=== PATIENT | female | born 1995 | race Caucasian/White ===

== ENCOUNTER 2020-05-03 15:53 | Emergency (ER) | payer OTHER, SELFPAY ==
[2020-05-03 15:55] VITALS: BP 113/71; PULSE 75; RESP 17; TEMP 36.9; O2SAT 100
--- NOTE | 2020-05-03 16:25 | ED_ITS ---
HPI - Skin/Abscess/Foreign Bdy General Chief complaint: Skin/Abscess/Foreign Body Stated complaint: ABCESS Time Seen by Provider: 05/03/20 16:19 History of Present Illness HPI narrative: She has a large painful lump on the right side of her neck. She has had this for several days . Previously seen at an outside hospital and started on antibiotics. No I&D performed. It has continued to become larger and more painful. No systemic symptoms. Related Data Home Medications Medication Instructions Recorded Confirmed sulfamethoxazole-trimethoprim 05/03/20 Allergies Allergy/AdvReac Type Severity Reaction Status Date / Time No Known Allergies Allergy Mild Verified 05/03/20 15:58 Review of Systems Constitutional: Constitutional: Denies chills and Denies fever(s) ENT: Denies dizziness Respiratory: Respiratory: Denies dyspnea Neurologic: Denies numbness and Denies weakness PMFSH Social History Social History Gender identity (if verbalized by the patient): Female Exam Const: General: healthy appearing, no acute distress and alert Orientation/consciousness: patient oriented x3 HENMT: Head: normal to inspection Neck: Neck: lymphadenopathy Other: 3x4 cm erythematous and indurated mass with central fluctuance on the right side of the neck Resp: Effort & Inspection: normal respiratory effort Auscultation: clear to auscultation bilaterally Cardio: Rate: regular rate Rhythm: regular rhythm Neuro: General: patient oriented x3 and moves all extremities Speech: normal speech Extrem: General: normal to inspection Course Vital Signs Vital signs: Vital Signs Temperature 36.9 C 05/03/20 15:55 Pulse Rate 75 05/03/20 15:55 Respiratory Rate 17 05/03/20 15:55 Blood Pressure 113/71 05/03/20 15:55 Pulse Oximetry 100 05/03/20 15:55 Temperature 36.9 C 05/03/20 15:55 Pulse Rate 72 05/03/20 17:13 Respiratory Rate 16 05/03/20 17:13 Blood Pressure 118/76 05/03/20 17:13 Pulse Oximetry 100 05/03/20 17:13 Procedures Abscess I/D neck: Side (if applicable): right Local Anesthetic: lidocaine 1% and with epi Amount of anesthesia used (mL): 6 Technique: incised with #11 blade Amount of fluid expressed (mL): 5 Irrigation: Yes Packing used?: iodoform I&D Results: Pus Discharge Plan Discharge Clinical Impression: Cellulitis and abscess of neck Patient Disposition: Home, Self-Care Condition: Stable Instructions: Antibiotic Form, Abscess (ED) Prescriptions: New sulfamethoxazole-trimethoprim [Bactrim DS] 800-160 mg tablet 1 tablet PO Q12H Qty: 10 RF: 0 Continued sulfamethoxazole-trimethoprim 800-160 mg tablet RF: 0 Follow-up/Referrals: PHYSICIAN,REEL BLADE BENDER FURNACE TENDER [Primary Care Provider] - Discharge Date/Time: 05/03/20 16:51
--- NOTE | 2020-05-03 16:29 | PC.NURSE ---
ERP AT BEDSIDE TO DRAIN WOUND.
[2020-05-03 17:13] VITALS: BP 118/76; PULSE 72; RESP 16; O2SAT 100
== END 2020-05-03 16:51 | disposition home or self-care (01) ==
PROVIDERS: Emergency Provider Emergency Medicine
DX: L03.221 Cellulitis of neck (principal); L02.11 Cutaneous abscess of neck
CPT/HCPCS: 10061; 99283

== ENCOUNTER 2021-09-29 20:37 | Emergency (ER) | payer OTHER, SELFPAY ==
--- NOTE | ~2021-09-29 | XR_ITS ---
EXAMINATION: XR knee RT min 4V DATE: 09/29/2021 22:13 INDICATION: Right knee pain after fall TECHNIQUE: Four views of the right knee were obtained. COMPARISON: None. FINDINGS: Alignment is normal. No fracture or osteochondral lesion. There are changes of prior tendon repair. No joint effusion/synovitis. Soft tissues are unremarkable. IMPRESSION: 1. No acute osseous abnormality. Reviewed, dictated and finalized at location F. NEYMAN PLUMBER
[2021-09-29 20:49] VITALS: BP 124/57; PULSE 78; RESP 12; TEMP 37.1; O2SAT 100
[2021-09-29] MEDS: KETOROLAC (*BKC) 60 MG/2 ML VIAL IM (21:50)
[2021-09-29] MEDS: ONDANSETRON HCL ODT 4 MG TABLET PO (21:50)
--- NOTE | 2021-09-29 21:56 | ED.LOWEXIN ---
HPI - Extremity Injury (Lower) General Chief Complaint: Extremity Injury, Lower Stated Complaint: knee pain Time Seen by Provider: 09/29/21 21:03 Source: patient and RN notes reviewed Mode of arrival: ambulatory Limitations: no limitations History of Present Illness HPI Narrative: This is a 26 year old female who presents for evaluation of right knee pain. She fell yesterday and she reports twisting her right knee and falling onto it. She reports her knee pain has worsened. She has taken 1200 mg ibuprofen for her pain without relief. She denies any other injuries. Related Data Home Medications Medication Instructions Recorded Confirmed sulfamethoxazole-trimethoprim 05/03/20 Allergies Allergy/AdvReac Type Severity Reaction Status Date / Time No Known Allergies Allergy Mild Verified 09/29/21 20:53 Review of Systems Review of Systems: All systems reviewed & are unremarkable except as noted in HPI and below PMFSH Past Medical History Medical History (Updated 09/30/21 @ 00:00 by Vonnie Schmidt) Patient denies medical problems Surgical History Surgical History (Updated 09/29/21 @ 21:58 by Hailey Peralta MD) History of repair of anterior cruciate ligament of right knee Social History Social History (Updated 09/29/21 @ 21:59 by Hailey Peralta MD) Smoking packs per day: 0.5 Smoking cigarettes per day: 10.0 Smoking status: Current every day smoker Gender identity (if verbalized by the patient): Female Exam Const: General: no acute distress and alert Orientation/consciousness: patient oriented x3 Eyes: EOM: EOMs intact bilaterally Skin: General skin exam: normal color Rashes: no rashes Neuro: General: patient oriented x3, moves all extremities and CN's II-XI intact bilaterally Extrem: Other: abrasion to right anterior knee, no significant bruising, swelling or deformity. She has FROM right knee Psych: Mental Status: mental status grossly normal Affect: normal affect Course Reevaluation(s) Reevaluation #1: I Discussed with patient xray was unremarkable. She will follow up with her orthopedic surgeon. Date: 09/29/21 Time: 22:55 Vital Signs Vital signs: Vital Signs Temperature 98.8 F 09/29/21 20:49 Pulse Rate 78 09/29/21 20:49 Respiratory Rate 12 09/29/21 20:49 Blood Pressure 124/57 L 09/29/21 20:49 Pulse Oximetry 100 09/29/21 20:49 Temperature 98.8 F 09/29/21 20:49 Pulse Rate 85 09/29/21 23:14 Respiratory Rate 16 09/29/21 23:14 Blood Pressure 120/72 09/29/21 23:14 Pulse Oximetry 100 09/29/21 23:14 MDM - Extremity Injury (Lower) Imaging Data Radiologist's impression: ITS Impressions Knee X-Ray 09/29/21 22:26 IMPRESSION: 1. No acute osseous abnormality. Discharge Plan Discharge Clinical Impression: Right knee sprain Patient Disposition: Home, Self-Care Condition: Stable Instructions: Antibiotic Form, Knee Pain (ED) Additional Instructions: You can wear a knee brace to help with your pain. Do not take more than one of your 600 mg tablets of ibuprofen every 6 hours. You can take tylenol with it. Apply ice to help with pain. follow up with your primary care provider or your orthopedic surgeon. Prescriptions: No Action sulfamethoxazole-trimethoprim 800-160 mg tablet RF: 0 sulfamethoxazole-trimethoprim [Bactrim DS] 800-160 mg tablet 1 tablet PO Q12H Qty: 10 RF: 0 Follow-up/Referrals: Koby,Karen Ferreira APRN [Primary Care Provider] -
[2021-09-29 23:14] VITALS: BP 120/72; PULSE 85; RESP 16; O2SAT 100
== END 2021-09-29 23:14 | disposition home or self-care (01) ==
PROVIDERS: Emergency Provider General Practice; PCP Nurse Practitioner Family
DX: S83.91XA Sprain of unspecified site of right knee, initial encounter (principal); F17.210 Nicotine dependence, cigarettes, uncomplicated; X50.9XXA Other and unspecified overexertion or strenuous movements or postures, initial encounter; W18.39XA Other fall on same level, initial encounter
CPT/HCPCS: 73564; 96372; 99283; A9270; J1885

== ENCOUNTER 2021-10-26 11:09 | Emergency (ER) | payer OTHER, SELFPAY ==
--- NOTE | ~2021-10-26 | CT_ITS ---
EXAMINATION: CT abdomen pelvis w con DATE: 10/26/2021 12:31 INDICATION: Periumbilical abdominal pain. Nausea. TECHNIQUE: Computed tomography (CT) of the abdomen and pelvis was performed with 100 mL Omnipaque 350 intravenous contrast. Automated exposure control and iterative reconstruction technique were employe d. The dose-length product was 362.23 mGy-cm. COMPARISON: CT abdomen and pelvis 01/30/2016 FINDINGS: The visualized portions of the lung bases are clear without pneumonia or pleural effusion. The heart size is normal. No pericardial effusion. There is a small sliding hiatal hernia. There are surgical changes of the stomach, likely a gastric sleeve procedure. The liver, gallbladder, spleen, p ancreas, adrenal glands, and kidneys are normal. There are no dilated loops of bowel. The appendix is normal. There are no pathologically enlarged lymph nodes. There is no free intraperitoneal fluid. 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 IMPRESSION: 1. Small sliding hiatal hernia. Gastric sleeve procedure. Reviewed, dictated and finalized at location A. WALL FINISHER
[2021-10-26 11:19] VITALS: BP 129/83; PULSE 71; RESP 18; TEMP 37.1; O2SAT 100
[2021-10-26 11:40] LABS: Basophils Absolute Auto 0.1 K/mm3 (0.0-0.1); Basophils Percent Auto 0.8 % (0.2-1.2); Eosinophils Absolute Auto 0.2 K/mm3 (0-0.3); Eosinophils Percent Auto 3.7 % (0-4.4); Hematocrit 38.6 % (37.0-47.0); Hemoglobin 12.8 g/dL (12.0-15.0); Immature Granulocyte Absolute 0.02 K/mm3 (0.00-0.031); Immature Granulocyte Percent A 0.3 % (0-0.5); Lymphocytes Absolute Auto 2.44 K/mm3 (0.9-3.2); Lymphocytes Percent Auto 38.8 % (18.3-44.2); Mean Corpuscular HGB Conc 33.2 g/dl (32-36); Mean Corpuscular Volume 90.6 fl (80-100); Mean Platelet Volume 9.8 fl (7.4-10.4); Monocytes Absolute Auto 0.4 K/mm3 (0.1-0.6); Neutrophils Absolute Auto 3.2 K/mm3 (1.3-6.7); Neutrophils Percent Auto 50.4 % (45.5-73.1); Platelet Count Result 306 k/mm3 (150-375); Red Blood Count 4.26 M/mm3 (4.2-5.4); Red Cell Distribution Width 12.4 % (11.5-14.5); White Blood Count 6.3 K/mm3 (4.5-10.0)
[2021-10-26 11:47] LABS: Add Urine Microscopic? YES; Appearance Urine Clear (Clear); Bilirubin Urine 1+ (Negative); Blood Urine Negative (Negative); Color Urine Yellow (Yellow); Glucose Urine UA Negative (Negative); Ketones Urine Trace mg/dL (Negative); Leukocyte Esterase Ur Negative LEU/UL (Negative); Mucus Urine Rare /lpf; Nitrate Urine Negative (Negative); Protein Urine Negative (Negative); Specific Grav Ur 1.027 (1.001-1.035); Squamous Epithelial Cell Urine Few /hpf (Few); WBC Urine 0-3 /hpf
[2021-10-26] MEDS: SODIUM CHLORIDE 0.9% IV 1,000 ML 999 ML IV CONT (11:49)
[2021-10-26 11:58] LABS: Alanine Aminotransferase 43 U/L (4-35); Albumin Level 4.2 g/dL (3.5-5.1); Alkaline Phosphatase 68 U/L (38-126); Anion Gap 6 mmol/L (8-16); Aspartate Amino Transferase 43 U/L (14-36); Bilirubin,Total 0.3 mg/dL (0.2-1.3); Blood Urea Nitrogen 12 mg/dL (7-17); Calcium 9.1 mg/dL (8.4-10.2); Carbon Dioxide 27 mmol/L (22-30); Chloride 107 mmol/L (98-107); Estimated CRCL calculation 103 ml/min; Estimated Glomerular Filt Rate > 60; Glucose 83 mg/dL (65-110); Lipase 137 U/L (23-300); Sodium 140 mmol/L (137-145)
--- NOTE | 2021-10-26 12:08 | ED.ABDPAIN ---
HPI - Abdominal Pain General Chief Complaint: Abdominal Pain Stated Complaint: abd pain Time Seen by Provider: 10/26/21 11:42 Source: patient Mode of arrival: ambulatory Limitations: no limitations History of Present Illness HPI narrative: Patient is 26 years old white female presents with right abdominal pain mainly around the bellybutton started 2 days ago constant, sharp, cramps, associated with nausea. Patient denies any fever, chills, vomiting, diarrhea, constipation, vaginal bleeding or discharge. 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 EYES: Denies visual changes, redness, or discharge. ENT: Denies rhinorrhea, congestion, sore throat, or otalgia. CARDIOVASCULAR: Denies chest pain, palpitations, or edema. RESPIRATORY: Denies cough or dyspnea. GASTROINTESTINAL: Denies abdominal pain, nausea, vomiting, or diarrhea. GENITOURINARY: Denies dysuria or hematuria. SKIN: Denies rash or itching. MUSCULOSKELETAL: Denies back pain, joint pain, or myalgia. NEUROLOGIC: Denies headache, numbness, or weakness. PSYCHIATRIC: Denies anxiety or depression. [facility] Past Medical History Medical History Patient denies medical problems Surgical History Surgical History History of repair of anterior cruciate ligament of right knee Social History Social History Smoking packs per day: 0.5 Smoking cigarettes per day: 10.0 Smoking status: Current every day smoker Gender identity (if verbalized by the patient): Female Exam Narrative: General appearance: Well-developed, well-nourished Skin: Normal color Head: Normocephalic, nontraumatic Eyes: Clear conjunctiva ENT: Oropharynx normal, ears normal, nose normal Neck: Supple, nontender Chest and respiratory: Airway patent, no respiratory distress, no accessory muscle use Heart: Regular rate/rhythm Abdomen: Soft, moderate tenderness right lower quadrant, positive guarding, no rebound, no organomegaly, quiet bowel sounds Vascular: Normal peripheral pulses, normal capillary refill. Musculoskeletal: Normal range of motion, nontender back Neurologic: Alert and oriented ?3, GYRO COMPASS TESTER is normal as tested, no gross motor deficit Course Course Emergency Course: Stable Vital Signs Vital signs: Vital Signs Temperature 37.1 C 10/26/21 11:19 Pulse Rate 71 10/26/21 11:19 Respiratory Rate 18 10/26/21 11:19 Blood Pressure 129/83 10/26/21 11:19 Pulse Oximetry 100 10/26/21 11:19 Temperature 37.1 C 10/26/21 11:19 Pulse Rate 71 10/26/21 11:19 Respiratory Rate 18 10/26/21 11:19 Blood Pressure 129/83 10/26/21 11:19 Pulse Oximetry 100 10/26/21 11:19 MDM - Abdominal Pain MDM Narrative Medical decision making narrative: Work-up showed no significant findings to explain patient condition. Hiatal hernia is a possibility as a complication for gastric sleeve. My plan to discharge patient on Bentyl and to follow-up with field sales associate for further evaluation Differential Diagnosis Differential diagnosis: Likely abdominal pain, acute appendicitis, calculus of kidney, constipation, diverticulitis and pancreatitis Lab Data Result diagrams: 10/26/21 11:35 10/26/21 11:35 Labs: Lab Res
[2021-10-26] MEDS: ONDANSETRON INJ 4 MG/2 ML VIAL IV PUSH (12:38)
[2021-10-26] MEDS: HYDROmorphone HCL INJ (*CRX) 1 MG/ML SYR 0.5 MG IV PUSH (12:39)
[2021-10-26 14:06] VITALS: BP 129/83; PULSE 78; RESP 18; O2SAT 99
== END 2021-10-26 14:07 | disposition home or self-care (01) ==
PROVIDERS: Emergency Provider Emergency Medicine; PCP Nurse Practitioner Family
DX: R10.33 Periumbilical pain (principal); F17.210 Nicotine dependence, cigarettes, uncomplicated; Z98.84 Bariatric surgery status; K44.9 Diaphragmatic hernia without obstruction or gangrene
CPT/HCPCS: 36415; 74177; 80053; 81001; 81025; 83690; 85025; 96361; 96374; 96375; 99284; J1170; J2405; J7030; Q9967

== ENCOUNTER 2021-11-05 14:44 | Emergency (ER) | payer OTHER, SELFPAY ==
[2021-11-05 14:46] VITALS: BP 127/77; PULSE 85; RESP 16; TEMP 36.3; O2SAT 96
[2021-11-05 14:52] VITALS: BP 125/68; PULSE 73; RESP 20; TEMP 36.7; O2SAT 100
--- NOTE | 2021-11-05 15:02 | ED.ABDPAIN ---
HPI - Abdominal Pain General Chief Complaint: Abdominal Pain Stated Complaint: abd pain Time Seen by Provider: 11/05/21 14:54 Source: patient Mode of arrival: ambulatory Limitations: no limitations History of Present Illness HPI narrative: 26-year-old female presents with mid abdominal pain started 2 days ago. Associated diarrhea. Patient denies urinary symptoms, fevers, or body aches. Patient has a history of a gastric sleeve procedure approximately 6 years ago. Patient states she was seen here 10 days ago and had a CT scan which was negative. Patient has not followed up with her PCP. Patient states she felt better until yesterday when the diarrhea midabdominal pain started no other complaints. MD elicited complaint: abdominal pain Onset (ago): day(s) (1) Associated symptoms: nausea and diarrhea Related Data Home Medications Medication Instructions Recorded Confirmed fluoxetine mg 11/05/21 fluoxetine mg 11/05/21 oxcarbazepine 11/05/21 Allergies Allergy/AdvReac Type Severity Reaction Status Date / Time No Known Allergies Allergy Mild Verified 10/26/21 11:23 Review of Systems Review of Systems: All systems reviewed & are unremarkable except as noted in HPI and below Constitutional: Constitutional: Reports no additional constitutional complaints Eyes: Eyes: Reports no additional eye complaints ENT: Reports system reviewed and no additional complaints, except as documented Cardiovascular: Cardiovascular: Reports no additional cardiovascular complaints Respiratory: Respiratory: Reports no additional respiratory complaints Gastrointestinal: Gastrointestinal: Reports abdominal pain, Reports diarrhea and Reports nausea Genitourinary: Genitourinary: Reports no additional female genitourinary complaints Musculoskeletal: Musculoskeletal: Reports no additional musculoskeletal complaints Integumentary/Breasts: Skin/Breast: Reports system reviewed and no additional complaints, except as docu Neurologic: Reports system reviewed and no additional complaints, except as documented Psychiatric: Psychiatric: Reports no additional psychiatric complaints Endocrine: Endocrine: Reports no additional endocrine complaints Hematologic/Lymphatic: Hematologic/Lymphatic: Reports no additional hematologic/lymphatic complaints Allergic/Immunologic: Allergic/Immunologic: Reports no additional allergic/immunologic complaints [facility] Past Medical History Medical History Patient denies medical problems Surgical History Surgical History History of repair of anterior cruciate ligament of right knee Social History Social History Smoking packs per day: 0.5 Smoking cigarettes per day: 10.0 Smoking status: Current every day smoker Gender identity (if verbalized by the patient): Female Exam Narrative: General appearance: Well-developed, well-nourished Skin: Normal color Head: Normocephalic, nontraumatic Eyes: Clear conjunctiva ENT: Oropharynx normal, ears normal, nose normal Neck: Supple, nontender Chest and respiratory: Airway patent, no respiratory distress, no accessory muscle use Heart: Regular rate/rhythm Abdomen: Soft, periumbilical tenderness, epigastric tenderness, no organomegaly, quiet bowel sounds Vascular: Normal peripheral pulses, normal capillary refill. Musculoskeletal: Normal range of motion, nontender back Neurologic: Alert and oriented ?3, CHIP BIN CONVEYOR TENDER is normal as tested, no gross motor deficit Course Reevaluation(s) Reevaluation #1: Patient's pain has decreased Date:
[2021-11-05] MEDS: DICYCLOMINE HCL INJ 20 MG/2 ML VIAL IM (15:14)
[2021-11-05] MEDS: SODIUM CHLORIDE 0.9% IV 1,000 ML 999 ML IV CONT (15:14)
[2021-11-05] MEDS: ONDANSETRON INJ 4 MG/2 ML VIAL IV PUSH (15:14)
[2021-11-05] MEDS: MAG HYDROX/AL HYDROX/SIMETH 30 ML UDC PO (15:14)
[2021-11-05 15:18] LABS: Basophils Percent Auto 0.4 % (0.2-1.2); Eosinophils Absolute Auto 0.2 K/mm3 (0-0.3); Eosinophils Percent Auto 1.6 % (0-4.4); Hematocrit 41.7 % (37.0-47.0); Hemoglobin 13.7 g/dL (12.0-15.0); Immature Granulocyte Absolute 0.02 K/mm3 (0.00-0.031); Immature Granulocyte Percent A 0.2 % (0-0.5); Lymphocytes Absolute Auto 3.46 K/mm3 (0.9-3.2); Lymphocytes Percent Auto 35.4 % (18.3-44.2); Mean Corpuscular HGB Conc 32.9 g/dl (32-36); Mean Corpuscular Hemoglobin 30.4 pg (26-34); Mean Corpuscular Volume 92.5 fl (80-100); Mean Platelet Volume 10.1 fl (7.4-10.4); Monocytes Absolute Auto 0.5 K/mm3 (0.1-0.6); Monocytes Percent Auto 5.1 % (2.6-8.5); Neutrophils Absolute Auto 5.6 K/mm3 (1.3-6.7); Neutrophils Percent Auto 57.3 % (45.5-73.1); Platelet Count Result 370 k/mm3 (150-375); Red Blood Count 4.51 M/mm3 (4.2-5.4); Red Cell Distribution Width 12.6 % (11.5-14.5); White Blood Count 9.8 K/mm3 (4.5-10.0)
[2021-11-05 15:27] LABS: Alanine Aminotransferase 35 U/L (4-35); Albumin Level 4.7 g/dL (3.5-5.1); Alkaline Phosphatase 59 U/L (38-126); Anion Gap 7 mmol/L (8-16); Aspartate Amino Transferase 37 U/L (14-36); Bilirubin,Total 0.6 mg/dL (0.2-1.3); Blood Urea Nitrogen 13 mg/dL (7-17); Carbon Dioxide 26 mmol/L (22-30); Chloride 106 mmol/L (98-107); Estimated CRCL calculation 120 ml/min; Estimated Glomerular Filt Rate > 60; Glucose 111 mg/dL (65-110); Lipase 116 U/L (23-300); Potassium 3.9 mmol/L (3.4-5.0); Sodium 139 mmol/L (137-145)
[2021-11-05 15:28] LABS: Add Urine Microscopic? YES; Appearance Urine Clear (Clear); Bilirubin Urine Negative (Negative); Blood Urine Negative (Negative); Color Urine Amber (Yellow); Glucose Urine UA Negative (Negative); Ketones Urine Trace mg/dL (Negative); Leukocyte Esterase Ur Negative LEU/UL (Negative); Mucus Urine Moderate /lpf; Nitrate Urine Negative (Negative); Protein Urine 1+ mg/dL (Negative); Squamous Epithelial Cell Urine Moderate /hpf (Few); WBC Urine 0-3 /hpf
[2021-11-05 15:29] LABS: Specific Grav Ur 1.032 (1.001-1.035)
[2021-11-05 16:45] VITALS: BP 101/68; PULSE 69; RESP 18; O2SAT 100
== END 2021-11-05 16:57 | disposition home or self-care (01) ==
LOC: ANHED 16:16
PROVIDERS: Emergency Provider Nurse Practitioner Family; PCP Nurse Practitioner Family
DX: N39.0 Urinary tract infection, site not specified (principal); R10.30 Lower abdominal pain, unspecified; Z98.84 Bariatric surgery status; F17.210 Nicotine dependence, cigarettes, uncomplicated
CPT/HCPCS: 36415; 80053; 81001; 81025; 83690; 85025; 96361; 96372; 96374; 99284; A9270; J0500; J2405; J7030

== ENCOUNTER 2021-11-09 20:53 | Emergency (ER) | payer OTHER, SELFPAY ==
--- NOTE | ~2021-11-09 | CT_ITS ---
EXAMINATION: CT abdomen pelvis w con DATE: 11/09/2021 22:41 INDICATION: Right lower abdominal pain. History of ovarian cysts. TECHNIQUE: Computed tomography (CT) of the abdomen and pelvis was performed with 100 cc Omnipaque 350 intravenous contrast. The dose-length product was 399.55 mGy-cm. Automated exposure control and ite rative reconstruction technique were employed. COMPARISON: CT dated 10/26/2021. FINDINGS: Lung bases are unremarkable. Heart size normal. No significant pleural or pericardial effus ion. Lung bases are unremarkable. Heart size normal. There are surgical changes consistent with gastr ic bypass. No significant vascular abnormality. Gallbladder is present. Nonobstructive bowel gas alberto wendy. The liver, spleen, pancreas, adrenal glands and kidneys are unremarkable. The appendix is not po sitively visualized. There is no pericecal inflammatory change to suggest appendicitis. There is a 2 .3 cm left ovarian cyst. No free air or free fluid. There are multiple focal sclerotic lesions of the pelvis and proximal femurs, most likely benign bone islands. IMPRESSION: 1. No acute abdominal abnormality. 2: Left ovarian cyst measuring 2.3 cm. Reviewed, dictated and finalized at location A. O PROJECT MANAGER
[2021-11-09 21:03] VITALS: BP 106/55; PULSE 87; RESP 20; TEMP 37.9; O2SAT 98
[2021-11-09 21:35] LABS: Basophils Absolute Auto 0.1 K/mm3 (0.0-0.1); Basophils Percent Auto 0.6 % (0.2-1.2); Eosinophils Absolute Auto 0.4 K/mm3 (0-0.3); Eosinophils Percent Auto 3.7 % (0-4.4); Hematocrit 38.9 % (37.0-47.0); Hemoglobin 12.9 g/dL (12.0-15.0); Immature Granulocyte Absolute 0.01 K/mm3 (0.00-0.031); Immature Granulocyte Percent A 0.1 % (0-0.5); Lymphocytes Absolute Auto 3.84 K/mm3 (0.9-3.2); Lymphocytes Percent Auto 40.1 % (18.3-44.2); Mean Corpuscular HGB Conc 33.2 g/dl (32-36); Mean Corpuscular Hemoglobin 30.2 pg (26-34); Mean Corpuscular Volume 91.1 fl (80-100); Mean Platelet Volume 9.9 fl (7.4-10.4); Monocytes Absolute Auto 0.8 K/mm3 (0.1-0.6); Monocytes Percent Auto 7.8 % (2.6-8.5); Neutrophils Absolute Auto 4.6 K/mm3 (1.3-6.7); Neutrophils Percent Auto 47.7 % (45.5-73.1); Platelet Count Result 342 k/mm3 (150-375); Red Blood Count 4.27 M/mm3 (4.2-5.4); Red Cell Distribution Width 12.4 % (11.5-14.5); White Blood Count 9.6 K/mm3 (4.5-10.0)
[2021-11-09 21:50] LABS: Mucus Urine Rare /lpf; Squamous Epithelial Cell Urine Rare /hpf (Few); WBC Urine 0-3 /hpf
[2021-11-09 21:51] LABS: Add Urine Microscopic? YES; Appearance Urine Clear (Clear); Bilirubin Urine 1+ (Negative); Blood Urine Negative (Negative); Color Urine Yellow (Yellow); Glucose Urine UA Negative (Negative); Ketones Urine 1+ mg/dL (Negative); Leukocyte Esterase Ur Negative LEU/UL (Negative); Nitrate Urine Negative (Negative); Protein Urine Trace mg/dL (Negative); Specific Grav Ur >= 1.030 (1.001-1.035)
[2021-11-09 22:05] LABS: Alanine Aminotransferase 34 U/L (4-35); Albumin Level 4.4 g/dL (3.5-5.1); Alkaline Phosphatase 66 U/L (38-126); Anion Gap 8 mmol/L (8-16); Aspartate Amino Transferase 34 U/L (14-36); Bilirubin,Total 0.3 mg/dL (0.2-1.3); Blood Urea Nitrogen 17 mg/dL (7-17); Calcium 8.9 mg/dL (8.4-10.2); Carbon Dioxide 26 mmol/L (22-30); Chloride 107 mmol/L (98-107); Estimated CRCL calculation 102 ml/min; Estimated Glomerular Filt Rate > 60; Glucose 52 mg/dL (65-110); Lipase 175 U/L (23-300); Potassium 4.1 mmol/L (3.4-5.0); Sodium 141 mmol/L (137-145)
--- NOTE | 2021-11-09 22:14 | ED.ABDPAIN ---
HPI - Abdominal Pain General Chief Complaint: Abdominal Pain Stated Complaint: abd pain, n/v/d, recent ovarian cyst Time Seen by Provider: 11/09/21 21:23 History of Present Illness HPI narrative: 26-year-old female presents to the emergency room with 7 to 10 days of right lower quadrant pain associated with vomiting and diarrhea, and fever. Patient reports a recent history of right-sided ovarian cyst, states that this pain feels differently. Related Data Home Medications Medication Instructions Recorded Confirmed fluoxetine mg 11/05/21 fluoxetine mg 11/05/21 oxcarbazepine 11/05/21 Allergies Allergy/AdvReac Type Severity Reaction Status Date / Time No Known Allergies Allergy Mild Verified 10/26/21 11:23 Review of Systems Review of Systems: CONSTITUTIONAL: Denies fever, chills, or sweats. EYES: Denies visual changes, redness, or discharge. ENT: Denies rhinorrhea, congestion, sore throat, or otalgia. CARDIOVASCULAR: Denies chest pain, palpitations, or edema. RESPIRATORY: Denies cough or dyspnea. GASTROINTESTINAL: Reports abdominal pain, nausea, vomiting, or diarrhea. GENITOURINARY: Denies dysuria or hematuria. SKIN: Denies rash or itching. MUSCULOSKELETAL: Denies back pain, joint pain, or myalgia. NEUROLOGIC: Denies headache, numbness, dizziness, or weakness. PSYCHIATRIC: Denies anxiety or depression. [facility] Past Medical History Medical History Patient denies medical problems Surgical History Surgical History History of repair of anterior cruciate ligament of right knee Social History Social History Smoking packs per day: 0.5 Smoking cigarettes per day: 10.0 Smoking status: Current every day smoker Gender identity (if verbalized by the patient): Female Exam Narrative: GENERAL: Well-appearing, well-nourished, and in no acute distress. HEAD: Normocephalic, atraumatic. EYES: PERRLA and EOMI. ENT: Nares clear, no rhinorrhea or epistaxis. Mucous membranes dry NECK: Supple. No adenopathy or masses. No carotid bruits or JVD CHEST: Clear to auscultation. No respiratory distress. No wheezes rales or rhonchi HEART: Regular rate and rhythm. No murmur heard. Normal peripheral pulses. ABDOMEN: Soft, nondistended, normal active bowel sounds. RLQ tenderness. +heel strike, +psoas/obturator signs EXTREMITIES: Normal range of motion. No edema. SKIN: Warm, dry, no rash. NEURO: No focal deficits. Alert and oriented x3. PSYCH: Normal mood and affect. Course Vital Signs Vital signs: Vital Signs Temperature 37.9 C H 11/09/21 21:03 Pulse Rate 87 11/09/21 21:03 Respiratory Rate 20 11/09/21 21:03 Blood Pressure 106/55 L 11/09/21 21: Pulse Oximetry 98 11/09/21 21:03 Temperature 36.9 C 11/09/21 22:28 Pulse Rate 65 11/09/21 22:28 Respiratory Rate 18 11/09/21 22:28 Blood Pressure 121/78 11/09/21 22:28 Pulse Oximetry 100 11/09/21 22:28 MDM - Abdominal Pain MDM Narrative Medical decision making narrative: 18-year-old female presents to emergency room with complaints of right lower quadrant pain, with intermittent fever. Patient has also been complaining of nausea vomiting and intermittent diarrhea. CBC was unremarkable. CAT scan shows no acute abdominal abnormality, with a 2.3 cm ovarian cyst on the left side. Scalp films show sizable amount of abdominal gas. Urine showed a high specific gravity and elevated ketones likely due to mild dehydration. Blood sugar was 52, patient given half amp of D50. Reevaluation of blood sugar following administration of D50 was over 110. Will have patient follow-up with primary care physician. Differential Diagnosis Differential diagnosis: Likely abdominal pain and gastroenteritis Medical Records Attestation: I reviewed the patient's medical records. Lab Data Attestation: I revie
[2021-11-09] MEDS: DEXTROSE 50% 25 GM/50 ML SYRINGE IV PUSH (22:25)
[2021-11-09] MEDS: SODIUM CHLORIDE 0.9% IV 1,000 ML 999 ML IV CONT (22:26)
[2021-11-09] MEDS: ONDANSETRON INJ 4 MG/2 ML VIAL IV PUSH (22:27)
[2021-11-09 22:28] VITALS: BP 121/78; PULSE 65; RESP 18; TEMP 36.9; O2SAT 100
[2021-11-09 23:04] LABS: Glucose Point of Care 118 mg/dl (65-105)
[2021-11-09 23:29] LABS: Hemoglobin A1C 4.7 % (<5.7)
[2021-11-10 00:37] VITALS: BP 104/62; PULSE 70; RESP 16; TEMP 36.7; O2SAT 100
== END 2021-11-10 00:10 | disposition home or self-care (01) ==
PROVIDERS: Emergency Medicine; Emergency Provider Nurse Practitioner Family; PCP Nurse Practitioner Family
DX: R10.31 Right lower quadrant pain (principal); R11.0 Nausea; N83.202 Unspecified ovarian cyst, left side; F17.210 Nicotine dependence, cigarettes, uncomplicated
CPT/HCPCS: 36415; 74177; 80053; 81001; 81025; 82948; 83036; 83690; 85025; 96361; 96374; 96375; 99284; J2405; J7030; Q9967

== ENCOUNTER 2022-03-14 19:58 | Emergency (ER) | payer OTHER, SELFPAY ==
--- NOTE | ~2022-03-14 | CT_ITS ---
EXAMINATION: CT abdomen pelvis w con DATE: 03/14/2022 22:11 INDICATION: RLQ pain TECHNIQUE: Computed tomography (CT) of the abdomen and pelvis was performed with 100 mL Omnipaque-300 intravenous contrast. Automated exposure control and iterative reconstruction technique were employe d. The dose-length product was 417.08 mGy-cm. COMPARISON: 11/09/2021. FINDINGS: Lower thorax: Unremarkable Liver: Normal. Biliary/Gallbladder: Gallbladder is normal. No bile duct dilation. Pancreas: No mass or duct dilation. Spleen: Normal. Adrenals:No mass. Kidneys: No mass, stone, or hydronephrosis. GI tract: No small or large bowel dilation. Appendix not confidently visualized. Prior gastric surger y. Mesentery/Peritoneum: No ascites, mass, or free air. Retroperitoneum: No mass. Pelvis: Pelvic organs are within normal limits. Soft Tissues: Soft tissues and body wall unremarkable. Bones: No acute osseous finding. IMPRESSION: No acute abdominopelvic process detected. Appendix not visualized and may be surgically absent. Reviewed, dictated and finalized at location [facility]. IMPRESSION: No acute abdominopelvic process detected. Appendix not visualized and may be francisco rgically absent.
[2022-03-14 20:22] VITALS: BP 109/47; PULSE 80; RESP 18; TEMP 36; O2SAT 99
[2022-03-14 20:38] LABS: Basophils Absolute Auto 0.1 K/mm3 (0.0-0.1); Basophils Percent Auto 0.7 % (0.2-1.2); Eosinophils Absolute Auto 0.5 K/mm3 (0-0.3); Eosinophils Percent Auto 5.7 % (0-4.4); Hematocrit 38.5 % (37.0-47.0); Hemoglobin 12.4 g/dL (12.0-15.0); Immature Granulocyte Absolute 0.02 K/mm3 (0.00-0.031); Immature Granulocyte Percent A 0.2 % (0-0.5); Lymphocytes Absolute Auto 3.51 K/mm3 (0.9-3.2); Mean Corpuscular HGB Conc 32.2 g/dl (32-36); Mean Corpuscular Hemoglobin 28.8 pg (26-34); Mean Corpuscular Volume 89.3 fl (80-100); Monocytes Absolute Auto 0.5 K/mm3 (0.1-0.6); Monocytes Percent Auto 5.6 % (2.6-8.5); Neutrophils Absolute Auto 3.8 K/mm3 (1.3-6.7); Neutrophils Percent Auto 45.8 % (45.5-73.1); Platelet Count Result 346 k/mm3 (150-375); Red Blood Count 4.31 M/mm3 (4.2-5.4); Red Cell Distribution Width 12.2 % (11.5-14.5); White Blood Count 8.4 K/mm3 (4.5-10.0)
[2022-03-14 20:53] VITALS: PULSE 84; RESP 19; O2SAT 100
[2022-03-14] MEDS: ONDANSETRON INJ 4 MG/2 ML VIAL IV PUSH (20:54)
[2022-03-14] MEDS: SODIUM CHLORIDE 0.9% IV 1,000 ML 999 ML IV CONT (20:54)
[2022-03-14 20:56] LABS: Appearance Urine Clear (Clear); Bilirubin Urine 1+ (Negative); Blood Urine Negative (Negative); Color Urine Yellow (Yellow); Glucose Urine UA Negative (Negative); Ketones Urine Trace mg/dL (Negative); Leukocyte Esterase Ur Negative LEU/UL (Negative); Nitrate Urine Negative (Negative); Protein Urine Negative (Negative); Specific Grav Ur 1.025 (1.001-1.035); pH Urine 5.5 (5.0-9.0)
[2022-03-14 20:59] LABS: Alanine Aminotransferase 45 U/L (6-35); Albumin Level 4.2 g/dL (3.5-5.1); Alkaline Phosphatase 76 U/L (38-126); Anion Gap 4 mmol/L (8-16); Aspartate Amino Transferase 45 U/L (14-36); Bilirubin,Total 0.2 mg/dL (0.2-1.3); Blood Urea Nitrogen 11 mg/dL (7-17); Calcium 8.3 mg/dL (8.4-10.2); Carbon Dioxide 24 mmol/L (22-30); Chloride 111 mmol/L (98-107); Estimated CRCL calculation 120 ml/min; Estimated Glomerular Filt Rate > 60; Glucose 58 mg/dL (65-110); Lipase 244 U/L (23-300); Potassium 4.3 mmol/L (3.4-5.0); Sodium 139 mmol/L (137-145)
[2022-03-14 21:06] LABS: Mucus Urine Rare /lpf; RBC Urine 0-2 /hpf (0-2); Squamous Epithelial Cell Urine Moderate /hpf (Few); WBC Urine 0-3 /hpf
[2022-03-14] MEDS: DEXTROSE 50% 25 GM/50 ML SYRINGE IV PUSH (21:06)
[2022-03-14 21:07] LABS: Add Urine Microscopic? YES
[2022-03-14 21:48] VITALS: BP 102/52; PULSE 61; RESP 18; O2SAT 98
--- NOTE | 2022-03-14 21:58 | ED.ABDPAIN ---
HPI - Abdominal Pain General Chief Complaint: Abdominal Pain Stated Complaint: abdominal pain x 3 days Time Seen by Provider: 03/14/22 20:42 History of Present Illness HPI narrative: 26-year-old female presented to the emergency department for evaluation of 2-3 days of nausea and vomiting associated lower abdominal pain. Patient does have a prior surgical history of gastric bypass. Patient denies any diarrhea. Patient states she is passing stool normally. Related Data Home Medications Medication Instructions Recorded Confirmed fluoxetine 10 mg capsule mg 11/05/21 fluoxetine 20 mg capsule mg 11/05/21 oxcarbazepine 600 mg tablet 11/05/21 Allergies Allergy/AdvReac Type Severity Reaction Status Date / Time No Known Allergies Allergy Mild Verified 03/14/22 20:42 Review of Systems Review of Systems: CONSTITUTIONAL: Denies fever, chills, or sweats. EYES: Denies visual changes, redness, or discharge. ENT: Denies rhinorrhea, congestion, sore throat, or otalgia. CARDIOVASCULAR: Denies chest pain, palpitations, or edema. RESPIRATORY: Denies cough or dyspnea. GASTROINTESTINAL: See HPI GENITOURINARY: Denies dysuria or hematuria. SKIN: Denies rash or itching. MUSCULOSKELETAL: Denies back pain, joint pain, or myalgia. NEUROLOGIC: Denies headache, numbness, or weakness. [facility] Past Medical History Medical History Patient denies medical problems Surgical History Surgical History History of repair of anterior cruciate ligament of right knee Social History Social History Smoking packs per day: 0.5 Smoking cigarettes per day: 10.0 Smoking status: Current every day smoker Gender identity (if verbalized by the patient): Female Exam Narrative: APPEARANCE: Well appearing, no pain, no distress, well-nourished. HEAD: normocephalic, atraumatic. EYES: PERRLA/EOMI, conjunctivae clear. NOSE: Normal no drainage THROAT: Pharynx clear, no exudate. NECK: Supple. No adenopathy, no masses. RESPIRATORY: Airway patent, respirations nonlabored. Clear to auscultation bilaterally, no rales, rhonchi, wheezing. CARDIOVASCULAR: Regular rate and rhythm without murmurs rubs or gallops. ABDOMINAL: Right lower quadrant tenderness to palpation. MUSCULOSKELETAL: Moves all extremities. Strength/ROM intact, No edema, No calf tenderness. NEURO: Alert. Cranial nerves II through XII intact. Grossly intact SKIN: Warm, dry. Normal Color Course Course Emergency Course: Patient's glucose was replaced with D50. Patient felt improved. Patient was tolerating p.o. at time of discharge. Vital Signs Vital signs: Vital Signs Temperature 96.8 F L 03/14/22 20:22 Pulse Rate 80 03/14/22 20:22 Respiratory Rate 18 03/14/22 20:22 Blood Pressure 109/47 L 03/14/22 20:22 Pulse Oximetry 99 03/14/22 20:22 Oxygen Delivery Room Air 03/14/22 20:22 Temperature 96.8 F L 03/14/22 20:22 Pulse Rate 61 03/14/22 23:57 Respiratory Rate 18 03/14/22 23:57 Blood Pressure 87/41 L 03/14/22 23:57 Pulse Oximetry 98 03/14/22 23:57 Oxygen Delivery Room Air 03/14/22 20:22 MDM - Abdominal Pain Lab Data Result diagrams: 03/14/22 20:31 03/14/22 20:31 Labs: Lab Results 03/14/22 03/14/22 03/14/22 Range/Units 20:31 20:31 20:47 WBC 8.4 (4.5-10.0) K/mm3 RBC 4.31 (4.2-5.4) M/mm3 Hgb 12.4 (12.0-15.0) g/dL Hct 38.5 (37.0-47.0) % MCV 89.3 (80-100) fl MCH 28.8 (26-34) pg MCHC 32.2 (32-36) g/dl RDW 12.2 (11.5-14.5) % Plt Count 346 (150-375) k/mm3 MPV 10.0 (7.4-10.4) fl Immature Gran % (Auto) 0.2 (0-0.5) % Neut % (Auto) 45.8 (45.5-73.1) % Lymph % (Auto) 42.0 (18.3-44.2) % [place] % (Auto) 5.6 (2.6-8.5) % Eos % (Auto) 5.7 H (0-4.4) % Baso % (Auto) 0.7 (0.2-1.2) %
[2022-03-14] MEDS: HYDROmorphone HCL INJ (*CRX) 1 MG/ML SYR 0.5 MG IV PUSH (22:46)
[2022-03-14 23:57] VITALS: BP 87/41; PULSE 61; RESP 18; O2SAT 98
== END 2022-03-14 23:45 | disposition home or self-care (01) ==
PROVIDERS: Emergency Provider Emergency Medicine; PCP Nurse Practitioner Family
DX: R11.2 Nausea with vomiting, unspecified (principal); R10.9 Unspecified abdominal pain; F17.210 Nicotine dependence, cigarettes, uncomplicated
CPT/HCPCS: 36415; 74177; 80053; 81001; 81025; 83690; 85025; 96361; 96374; 96375; 99284; J1170; J2405; J7030; Q9967

== ENCOUNTER 2022-12-27 22:10 | Emergency (ER) | payer OTHER, SELFPAY ==
--- NOTE | ~2022-12-27 | CT_ITS ---
Non-contrast CT scan of the Abdomen and Pelvis Clinical indication: Kidney stone Technique: 2.5 mm axial scans were obtained through the abdomen and pelvis without intravenous or or al contrast. Dose reduction technique was used on this scan by utilizing automated exposure control a nd iterative reconstruction technique. The dose-length product (DLP) was 173.91 mGy-cm. COMPARISON: 03/14/2022 Findings: Images through the lung bases reveal no abnormalities. There is no evidence of renal or ureteral calculi. The kidneys and the ureters are nondilated. The liver, spleen, pancreas, gallbladder, and adrenals appear normal. There is no aortic aneurysm. There is no evidence of bowel obstruction. No right lower quadrant inflammatory change seen. Images through the pelvis were performed. There is no evidence of ascites or lymphadenopathy. Urinary bladder unremarkable. No adnexal mass evident. Impression: No significant abnormality seen. Reviewed, dictated and finalized at [facility]. Impression: No significant abnormality seen.
[2022-12-27 22:17] VITALS: BP 107/65; PULSE 86; RESP 16; TEMP 36.7; O2SAT 100
[2022-12-27 22:34] LABS: Basophils Percent Auto 0.5 % (0.2-1.2); Eosinophils Absolute Auto 0.3 K/mm3 (0-0.3); Eosinophils Percent Auto 3.3 % (0-4.4); Hematocrit 40.9 % (37.0-47.0); Hemoglobin 13.4 g/dL (12.0-15.0); Immature Granulocyte Absolute 0.02 K/mm3 (0.00-0.031); Immature Granulocyte Percent A 0.3 % (0-0.5); Lymphocytes Absolute Auto 2.87 K/mm3 (0.9-3.2); Lymphocytes Percent Auto 37.6 % (18.3-44.2); Mean Corpuscular HGB Conc 32.8 g/dl (32-36); Mean Corpuscular Hemoglobin 29.6 pg (26-34); Mean Corpuscular Volume 90.3 fl (80-100); Mean Platelet Volume 10.2 fl (7.4-10.4); Monocytes Absolute Auto 0.5 K/mm3 (0.1-0.6); Monocytes Percent Auto 6.2 % (2.6-8.5); Neutrophils Percent Auto 52.1 % (45.5-73.1); Platelet Count Result 243 k/mm3 (150-375); Red Blood Count 4.53 M/mm3 (4.2-5.4); Red Cell Distribution Width 13.9 % (11.5-14.5); White Blood Count 7.6 K/mm3 (4.5-10.0)
[2022-12-27 22:49] LABS: Alanine Aminotransferase 59 U/L (6-35); Albumin Level 4.3 g/dL (3.5-5.1); Alkaline Phosphatase 58 U/L (38-126); Anion Gap 4 mmol/L (8-16); Aspartate Amino Transferase 49 U/L (14-36); Bilirubin,Total 0.4 mg/dL (0.2-1.3); Blood Urea Nitrogen 12 mg/dL (7-17); Calcium 8.8 mg/dL (8.4-10.2); Carbon Dioxide 29 mmol/L (22-30); Chloride 107 mmol/L (98-107); Estimated CRCL calculation 117 ml/min; Estimated Glomerular Filt Rate > 60; Glucose 85 mg/dL (65-110); Lipase 169 U/L (23-300); Potassium 4.4 mmol/L (3.4-5.0); Sodium 140 mmol/L (137-145)
--- NOTE | 2022-12-28 00:52 | PC.NURSE ---
[id number] AP 27/F; BROUGHT BACK TO ROOM 5 VIA W/C BY THIS RN. EXPLAINED TO PT THAT SHE NEEDED TO GET INTO THE GOWN AND UP ON THE GURNEY. PT ASKED IF SHE HAD TO DO IT NOW. I INFORMED PT THAT I WAS HERE TO HELP HER GET TO THE GURNEY SAFELY, THEN I WOULD LEAVE AND GIVE HER PRIVACY TO CHANGE. PT THEN THREW HERSELF ON THE GROUND FROM THE WHEELCHAIR. PT PICKED UP FROM THE GROUND BY MYSELF AND JAMES REYNOSO, SHE DID PUT WEIGHT ON ONE LEG TO HELP US GET HER UP TO THE GURNEY. THEN HER MALE PAN OPERATOR ENTERS THE ROOM. SHE THEN SAYS TO HIM THEY LET ME FALL .
--- NOTE | 2022-12-28 01:01 | ED.GENADULT ---
HPI - General Adult General Chief complaint: Abdominal Pain Stated complaint: abdominal pain, cant walk Time Seen by Provider: 12/28/22 00:39 History of Present Illness HPI narrative: Is a 27-year-old female presenting to ED with a chief complaint of right-sided abdominal pain. She said it started yesterday evening, as a crampy pain in her right upper quadrant that radiates down to her groin. 6/10 intensity. It is constant but fluctuates in intensity. She has never experienced pain like this before there are no exacerbating alleviating factors. She is nauseous but no vomiting diarrhea, fevers chest pain difficulty breathing or urinary symptoms. Patient also states she has lower extremity weakness. She says that it has been difficult for her to walk. She says this is due to the pain in her stomach. Related Data Home Medications Medication Instructions Recorded Confirmed fluoxetine 10 mg capsule mg 11/05/21 fluoxetine 20 mg capsule mg 11/05/21 oxcarbazepine 600 mg tablet 11/05/21 Allergies Allergy/AdvReac Type Severity Reaction Status Date / Time No Known Allergies Allergy Mild Verified 03/14/22 20:42 [facility] Past Medical History Medical History Hepatitis C Patient denies medical problems Surgical History Surgical History History of repair of anterior cruciate ligament of right knee Social History Social History (Updated 12/28/22 @ 01:03 by Aidan Robison MD) Social History: Denies use of alcohol. 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 Smoking packs per day: 0.5 Smoking cigarettes per day: 10.0 Smoking status: Current every day smoker Gender identity (if verbalized by the patient): Female Exam Narrative: APPEARANCE: No apparent distress. Head: atraumatic. EYES: EOMI, NOSE: Atraumatic NECK: Trachea midline RESPIRATORY: No increased rate of breathing CARDIOVASCULAR: RRR, ABDOMINAL: Abdomen is soft nontender with no guarding or rebound, patient reports right upper quadrant tenderness but I am unable to elicit a grimace with deep palpation. Mild right CVA tenderness. MUSCULOSKELETAl: No obvious deformities NEURO: Alert. Focal exam of the lower extremities revealed Fully strength of the hip, knee and ankle while the patient is laying supine. When the patient stands she walks with an antalgic gait and says that she feels like her legs are giving out. SKIN:: Warm, dry. Normal color PSYCHIATRIC: Normal affect Course Vital Signs Vital signs: Vital Signs Temperature 98.1 F 12/27/22 22:17 Pulse Rate 86 12/27/22 22:17 Respiratory Rate 16 12/27/22 22:17 Blood Pressure 107/65 12/27/22 22:17 Pulse Oximetry 100 12/27/22 22:17 Oxygen Delivery Room Air 12/27/22 22:17 Temperature 98.1 F 12/27/22 22:17 Pulse Rate 55 L 12/28/22 03:35 Respiratory Rate 14 12/28/22 03:35 Blood Pressure 100/72 12/28/22 03:35 Pulse Oximetry 100 12/28/22 03:35 Oxygen Delivery Room Air 12/27/22 22:17 Medical Decision Making MDM Narrative Medical decision making narrative: -Presentation: 27-year-old female presenting with right-sided abdominal pain. -DDX includes but is not limited to: Gallbladder pathology, kidney stones, MSK, hepatitis -Co-morbidities complicating care: hepatitis C -Social determinants of health: patient works at [employer], lives alone -External Chart Review: none -Hx from independent Sources: friend Ricki at bedside -Discussion of Management/Consultants: none -Independent interpretation of studies: CBC normal. Metabolic panel showed slight elevations in AST and ALT. Lipase normal. Point of care right upper quadrant ultrasound revealed a normal gallbladder without evidence of cholelithiasis, gallbladder wall thickening or pericholecysti
[2022-12-28 01:22] LABS: Appearance Urine Clear (Clear); Bilirubin Urine Negative (Negative); Blood Urine Negative (Negative); Color Urine Yellow (Yellow); Glucose Urine UA Negative (Negative); Ketones Urine Trace mg/dL (Negative); Leukocyte Esterase Ur Negative LEU/UL (Negative); Nitrate Urine Negative (Negative); Protein Urine Negative (Negative); Specific Grav Ur 1.027 (1.001-1.035); pH Urine 6.5 (5.0-9.0)
[2022-12-28 01:25] LABS: Add Urine Microscopic? NO
[2022-12-28] MEDS: KETOROLAC 15 MG/ML VIAL (*BKC) IV PUSH (01:33)
[2022-12-28] MEDS: ACETAMINOPHEN 325 MG TABLET 650 MG PO (01:37)
[2022-12-28] MEDS: HYDROcodone/acetaminophen (*CRX) 5-325 MG TABLET 1 TAB PO (01:37)
[2022-12-28 02:08] VITALS: BP 101/62; PULSE 55; RESP 16; O2SAT 100
[2022-12-28 03:35] VITALS: BP 100/72; PULSE 55; RESP 14; O2SAT 100
[2022-12-28] MEDS: oxyCODONE HCL (*CRX) 5 MG TAB IR PO (04:04)
[2022-12-28 04:11] VITALS: BP 101/62; PULSE 54; RESP 14; O2SAT 100
== END 2022-12-28 04:14 | disposition home or self-care (01) ==
PROVIDERS: Emergency Provider Emergency Medicine; PCP Nurse Practitioner Family
DX: R10.9 Unspecified abdominal pain (principal); Z86.19 Personal history of other infectious and parasitic diseases; F17.210 Nicotine dependence, cigarettes, uncomplicated
CPT/HCPCS: 36415; 74176; 80053; 81003; 81025; 83690; 85025; 96374; 99284; A9270; J1885

== ENCOUNTER 2023-05-15 18:14 | Emergency (ER) | payer OTHER, SELFPAY ==
[2023-05-15 18:56] VITALS: BP 129/60; PULSE 65; RESP 16; TEMP 37.1; O2SAT 100
--- NOTE | 2023-05-15 20:10 | PC.NURSE ---
patient left from waiting area at 2011
== END 2023-05-15 20:11 | disposition left against medical advice (07) ==
PROVIDERS: PCP Nurse Practitioner Family
DX: R10.9 Unspecified abdominal pain (principal)
CPT/HCPCS: 99199

== ENCOUNTER 2023-05-16 18:39 | Emergency (ER) | payer OTHER, SELFPAY ==
--- NOTE | ~2023-05-16 | CT_ITS ---
CT of the Abdomen and Pelvis: Indication: Abdominal pain Technique: 2.5 mm axial scans were obtained through the abdomen and pelvis following intravenous adm inistration of 100 cc of Omnipaque 350. Dose reduction technique was used on this scan by utilizing a utomated exposure control and iterative reconstruction technique. The dose-length product (DLP) was 5 06.42 mGy-cm. COMPARISON: 12/28/2022 Findings: Scans through the lung bases demonstrates stable 4 mm right lower lobe pulmonary nodule. T here is an additional 3 mm lingular nodule.. The liver, spleen, pancreas, gallbladder, adrenals and kidneys are within normal limits. No evidence of aortic aneurysm. No lymphadenopathy. No bowel obstruction or bowel wall thickening. There is no evidence to suggest acute appendicitis. Images through the pelvis were performed. Urinary bladder unremarkable. No pelvic mass seen. No ascit es. Impression: Bibasilar pulmonary nodules, as noted above, most likely benign. According to Fleischner Society crit eraxel, for a low-risk patient, no further follow-up required. For a high-risk patient, consider 12 sun follow-up CT. No other significant findings. Reviewed, dictated and finalized at location . Impression: Bibasilar pulmonary nodules, as noted above, most likely benign. According to F leischner Society criteria, for a low-risk patient, no further follow-up requir ed. For a high-risk patient, consider 12 month follow-up CT. No other significant findings.
[2023-05-16 18:44] VITALS: BP 114/59; PULSE 56; RESP 16; TEMP 36.7; O2SAT 100
[2023-05-16 22:13] VITALS: BP 129/93; PULSE 58; RESP 17; TEMP 36.4; O2SAT 100
[2023-05-16 22:45] LABS: Basophils Percent Auto 0.4 % (0.2-1.2); Eosinophils Absolute Auto 0.3 K/mm3 (0-0.3); Eosinophils Percent Auto 4.4 % (0-4.4); Hematocrit 40.9 % (37.0-47.0); Lymphocytes Absolute Auto 3.83 K/mm3 (0.9-3.2); Lymphocytes Percent Auto 53.2 % (18.3-44.2); Mean Corpuscular HGB Conc 34.2 g/dl (32-36); Mean Corpuscular Hemoglobin 31.6 pg (26-34); Mean Corpuscular Volume 92.3 fl (80-100); Mean Platelet Volume 9.8 fl (7.4-10.4); Monocytes Absolute Auto 0.4 K/mm3 (0.1-0.6); Monocytes Percent Auto 6.1 % (2.6-8.5); Neutrophils Absolute Auto 2.6 K/mm3 (1.3-6.7); Neutrophils Percent Auto 35.9 % (45.5-73.1); Platelet Count Result 282 k/mm3 (150-375); Red Blood Count 4.43 M/mm3 (4.2-5.4); Red Cell Distribution Width 11.4 % (11.5-14.5); White Blood Count 7.2 K/mm3 (4.5-10.0)
[2023-05-16 22:46] LABS: Appearance Urine Clear (Clear); Bilirubin Urine Negative (Negative); Blood Urine Negative (Negative); Color Urine Yellow (Yellow); Glucose Urine UA Negative (Negative); Ketones Urine Negative (Negative); Leukocyte Esterase Ur Negative LEU/UL (Negative); Nitrate Urine Negative (Negative); Protein Urine Negative (Negative); Specific Grav Ur 1.019 (1.001-1.035); pH Urine 6.5 (5.0-9.0)
[2023-05-16 22:56] LABS: Alanine Aminotransferase 55 U/L (6-35); Albumin Level 4.5 g/dL (3.5-5.1); Alkaline Phosphatase 71 U/L (38-126); Anion Gap 6 mmol/L (8-16); Aspartate Amino Transferase 45 U/L (14-36); Bilirubin,Total 0.6 mg/dL (0.2-1.3); Blood Urea Nitrogen 8 mg/dL (7-17); Calcium 9.2 mg/dL (8.4-10.2); Carbon Dioxide 28 mmol/L (22-30); Chloride 101 mmol/L (98-107); Estimated CRCL calculation 120 ml/min; Estimated Glomerular Filt Rate > 60; Glucose 81 mg/dL (65-110); Lipase 118 U/L (23-300); Potassium 3.5 mmol/L (3.4-5.0); Sodium 135 mmol/L (137-145)
[2023-05-16 22:59] LABS: Add Urine Microscopic? NO
[2023-05-17] MEDS: ONDANSETRON INJ 4 MG/2 ML VIAL IV PUSH (00:43)
[2023-05-17] MEDS: FAMOTIDINE 20 MG/2 ML VIAL IV PUSH (00:43)
--- NOTE | 2023-05-17 00:43 | ED.ABDPAIN ---
HPI - Abdominal Pain General Chief Complaint: Abdominal Pain Stated Complaint: abd pain/n/v/figueroa Time Seen by Provider: 05/16/23 22:15 Source: patient Mode of arrival: ambulatory Limitations: no limitations History of Present Illness HPI narrative: This is a 27 year old female that presents to the ER for abdominal pain. Ongoing over the last week. Associated with nausea and vomiting. Reports the pain is constant and achy. Denies fever, diarrhea, or dysuria. Related Data Home Medications Medication Instructions Recorded Confirmed fluoxetine 10 mg capsule mg 11/05/21 fluoxetine 20 mg capsule mg 11/05/21 oxcarbazepine 600 mg tablet 11/05/21 Allergies Allergy/AdvReac Type Severity Reaction Status Date / Time No Known Allergies Allergy Mild Verified 05/16/23 22:08 Review of Systems Review of Systems: CONSTITUTIONAL: Denies fever GASTROINTESTINAL: Reports abdominal pain, nausea, vomiting. Denies diarrhea. GENITOURINARY: Denies dysuria All systems reviewed & are unremarkable except as noted in HPI and below PMFSH Past Medical History Medical History Hepatitis C Patient denies medical problems Surgical History Surgical History History of repair of anterior cruciate ligament of right knee Social History Social History (Updated 12/28/22 @ 01:03 by Aidan Robison MD) Social History: Denies use of alcohol. 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 Smoking packs per day: 0.5 Smoking cigarettes per day: 10.0 Smoking status: Current every day smoker Gender identity (if verbalized by the patient): Female Exam Narrative: GENERAL: Well-appearing, well-nourished, and in no acute distress. HEAD: Normocephalic, atraumatic. EYES: EOMI. CHEST: Clear to auscultation. No respiratory distress. No wheezes rales or rhonchi HEART: Regular rate and rhythm. No murmur heard. Normal peripheral pulses. ABDOMEN: Soft, nondistended, normal active bowel sounds. Mild tenderness to palpation in the upper abdomen, without guarding EXTREMITIES: Normal range of motion. No edema. SKIN: Warm, dry, no rash. NEURO: No focal deficits. Alert and oriented x3. PSYCH: Normal mood and affect Course Course Emergency Course: Patient was updated on workup and agrees with plan of care. Able to tolerate p.o. challenge Vital Signs Vital signs: Vital Signs Temperature 98.0 F 05/16/23 18:44 Pulse Rate 56 L 05/16/23 18:44 Respiratory Rate 16 05/16/23 18:44 Blood Pressure 114/59 L 05/16/23 18:44 Pulse Oximetry 100 05/16/23 18:44 Oxygen Delivery Room Air 05/16/23 18:44 Temperature 97.6 F 05/16/23 22:13 Pulse Rate 58 L 05/17/23 01:26 Respiratory Rate 21 H 05/17/23 01:26 Blood Pressure 95/64 L 05/17/23 01:26 Pulse Oximetry 100 05/17/23 01:26 Oxygen Delivery Room Air 05/16/23 18:44 MDM - Abdominal Pain MDM Narrative Medical decision making narrative: Patient presents to the ER for upper abdominal pain over the last week. She is afebrile and nontoxic appearing. Her vitals are stable. CBC is without leukocytosis. Metabolic panel with mild transaminitis, which appears to be chronic for patient. Her lipase is normal. UA without evidence of infection. CT scan of the abdomen and pelvis is without acute findings. Patient was updated on workup and agrees with plan of care. Able to tolerate p.o. challenge. She is to follow-up with gastroenterology. She was given warnings to return to the ER Differential Diagnosis Differential diagnosis: Likely abdominal pain, acute appendicitis, calculus of kidney, constipation, diverticulitis, gastroenteritis and pancreatitis Lab Data Attestation: I reviewed the patient's lab results. 05/16/23 22:38 05/16/23 22:38 Labs: Lab Results 05/16/23 Range/Units
[2023-05-17] MEDS: KETOROLAC 15 MG/ML VIAL (*BKC) IV PUSH (00:45)
[2023-05-17] MEDS: SODIUM CHLORIDE 0.9% IV 1,000 ML 999 ML IV CONT (00:47)
[2023-05-17 01:26] VITALS: BP 95/64; PULSE 58; RESP 21; O2SAT 100
[2023-05-17] MEDS: ACETAMINOPHEN 500 MG TABLET 1000 MG PO (02:23)
== END 2023-05-17 02:29 | disposition home or self-care (01) ==
PROVIDERS: Emergency Provider Physician Assistant; PCP Nurse Practitioner Family
DX: R10.13 Epigastric pain (principal); B19.20 Unspecified viral hepatitis C without hepatic coma; F17.210 Nicotine dependence, cigarettes, uncomplicated
CPT/HCPCS: 36415; 74177; 80053; 81003; 81025; 83690; 85025; 96361; 96374; 96375; 99284; A9270; J1885; J2405; J7030; Q9967